=== PATIENT | female | born 1990 | race Caucasian/White ===

== ENCOUNTER 2016-05-20 14:35 | Emergency (ER) | payer OTHER ==
[~2016-05-20] VITALS: Wt 122.5 kg
[~2016-05-20 14:35] MED LIST: AUGMENTIN 875-875 MG PO; BIRTH CONTROL1 EAC1 PO; CYCLOBENZAPRINE10 MG PO; MACROBID100 M1 PO; Motrin,Rufen800 MG PO; NKHM; NORCO 325 MG-51 TAB PO; PEN-VK500 MG PO; PERIDEX 480 ML480 ML PO; PREDNISONE10 MG PO; PRENATAL1 TA1 PO; PRENATAL1 TA3 PO; TRIMOX500 MG PO; ZOFRAN ODT4 MG SL; [UNRECOGNIZED DRUG - OTHER] MM
[2016-05-20 16:36] LABS: BILIRUBIN NEGATIVE (NEGATIVE); BLOOD NEGATIVE (NEGATIVE); CLARITY SL CLOUDY (CLEAR); COLOR YELLOW (YELLOW); GLUCOSE NEGATIVE (NEGATIVE); KETONE NEGATIVE (NEGATIVE); LEUKO ESTERASE 1+ (NEGATIVE); NITRITE NEGATIVE (NEGATIVE); PH 6.5 (5.0-9.0); PROTEIN NEGATIVE (NEGATIVE); UROBILINOGEN 0.2 E.U./dl (0.2-1.0)
[2016-05-20 16:43] LABS: RBC 0-2 rbc/hpf (0-2)
[2016-05-20 16:44] LABS: BACTERIA 2+; URINE REFLEX COMMENT YES (NO)
[2016-05-20] MEDS ORDERED: MACROBID100 M1 PO (17:02)
== END 2016-05-20 17:07 | disposition left against medical advice (07) ==
LOC: ED 14:35
PROVIDERS: Registered Nurse
DX: O23.42 Unspecified infection of urinary tract in pregnancy, second trimester (principal); Z3A.20 20 weeks gestation of pregnancy; Z79.899 Other long term (current) drug therapy

== ENCOUNTER 2017-05-08 09:08 | Emergency (ER) | payer OTHER ==
[~2017-05-08] VITALS: Ht 170.1 cm; Wt 117.9 kg
[2017-05-08 09:45] LABS: BASO # 0.1 10*3/uL (0.0-0.1); BASO % 0.6 % (0.0-1.0); EOS # 0.6 10*3/uL (0.0-0.4); EOS % 7.1 % (1.0-4.0); HEMOGLOBIN 11.2 g/dl (12.0-16.0); LYMPH # 1.9 10*3/uL (1.3-4.4); LYMPH % 22.2 % (27.0-41.0); MEAN CELL VOLUME 75.8 fl (81.0-99.0); MEAN CORPUSCULAR HGB 23.6 pg (27.0-31.0); MEAN CORPUSCULAR HGB CONC 31.1 g/dl (33.0-37.0); MEAN PLATELET VOLUME 9.5 fl (9.6-12.3); MONO # 0.6 10*3/uL (0.1-1.0); MONO % 6.5 % (3.0-9.0); NEUT # 5.5 10*3/uL (2.3-7.9); NEUT % 63.1 % (47.0-73.0); PLATELET COUNT AUTOMATED 298 10*3/uL (130-400); RED BLOOD COUNT 4.75 10*6/uL (4.10-5.10); RED CELL DISTRI WIDTH 14.8 % (0-14.5); WHITE BLOOD COUNT 8.7 10*3/uL (4.8-10.8)
[2017-05-08 09:52] LABS: INTERNATIONAL NORM RATIO 0.9 (2.0-3.5)
[2017-05-08 10:00] LABS: ALBUMIN 3.5 gm/dl (3.1-4.5); ALKALINE PHOSPHATASE 114 U/L (45-117); BUN 15 mg/dl (7-24); CHLORIDE 108 mmol/L (98-107); CREATININE 1.03 mg/dL (0.55-1.02); POTASSIUM 3.7 mmol/L (3.5-5.1); SGOT/AST 20 IU/L (3-35); SGPT/ALT 35 U/L (12-78); SODIUM 141 mmol/L (136-145); TOTAL PROTEIN 7.7 gm/dL (6.4-8.2)
[2017-05-08] MEDS ORDERED: DELTASONE20 M1 PO (10:06)
[2017-05-08] MEDS ORDERED: ZITHROMAX250 MG PO (10:06)
[2017-05-08] MEDS ORDERED: VISTARIL25 MG PO (10:06)
[2017-05-08 10:07] LABS: TROPONIN I < 0.015 ng/ml (<0.045)
== END 2017-05-08 10:54 | disposition home or self-care (01) ==
LOC: ED 09:08
PROVIDERS: Physician Assistant
DX: J06.9 Acute upper respiratory infection, unspecified (principal); F41.9 Anxiety disorder, unspecified

== ENCOUNTER 2017-06-14 10:07 | Emergency (ER) | payer OTHER ==
[~2017-06-14] VITALS: Ht 170.1 cm; Wt 117.9 kg
[~2017-06-14 10:07] MED LIST changes: +DELTASONE20 M1 PO; +VISTARIL25 MG PO; +ZITHROMAX250 MG PO
[2017-06-14] MEDS ORDERED: PREDNISONE50 MG PO (11:31)
== END 2017-06-14 12:03 | disposition home or self-care (01) ==
LOC: ED 10:07
DX: J45.901 Unspecified asthma with (acute) exacerbation (principal); F41.9 Anxiety disorder, unspecified

== ENCOUNTER 2017-06-19 18:22 | Emergency (ER) | payer OTHER ==
[~2017-06-19] VITALS: Ht 170.1 cm; Wt 122.5 kg
[~2017-06-19 18:22] MED LIST changes: +PREDNISONE50 MG PO
[2017-06-19 18:44] LABS: BASO # 0.1 10*3/uL (0.0-0.1); BASO % 0.6 % (0.0-1.0); EOS # 0.2 10*3/uL (0.0-0.4); EOS % 1.1 % (1.0-4.0); HEMATOCRIT 36.1 % (37.0-47.0); HEMOGLOBIN 11.2 g/dl (12.0-16.0); LYMPH # 4.7 10*3/uL (1.3-4.4); LYMPH % 32.1 % (27.0-41.0); MEAN CELL VOLUME 76.8 fl (81.0-99.0); MEAN CORPUSCULAR HGB 23.8 pg (27.0-31.0); MEAN PLATELET VOLUME 9.8 fl (9.6-12.3); MONO # 1.1 10*3/uL (0.1-1.0); MONO % 7.2 % (3.0-9.0); NEUT # 8.4 10*3/uL (2.3-7.9); NEUT % 57.9 % (47.0-73.0); PLATELET COUNT AUTOMATED 305 10*3/uL (130-400); RED CELL DISTRI WIDTH 15.4 % (0-14.5); WHITE BLOOD COUNT 14.5 10*3/uL (4.8-10.8)
[2017-06-19 18:54] LABS: ACT PARTIAL THROMBO TIME 21.3 SECONDS (20.8-31.5)
[2017-06-19 19:00] LABS: ALBUMIN 3.7 gm/dl (3.1-4.5); ALKALINE PHOSPHATASE 87 U/L (45-117); BUN 15 mg/dl (7-24); CHLORIDE 104 mmol/L (98-107); CREATININE 1.06 mg/dL (0.55-1.02); POTASSIUM 3.9 mmol/L (3.5-5.1); SGOT/AST 13 IU/L (3-35); SGPT/ALT 38 U/L (12-78); SODIUM 141 mmol/L (136-145); TOTAL PROTEIN 7.4 gm/dL (6.4-8.2)
[2017-06-19 19:04] LABS: TROPONIN I < 0.015 ng/ml (<0.045)
== END 2017-06-19 21:17 | disposition home or self-care (01) ==
LOC: ED 18:22
PROVIDERS: Emergency Medicine
DX: R07.9 Chest pain, unspecified (principal); F41.9 Anxiety disorder, unspecified; Z79.899 Other long term (current) drug therapy

== ENCOUNTER 2017-07-08 00:19 | Emergency (ER) | payer OTHER ==
[~2017-07-08] VITALS: Ht 172.7 cm; Wt 117.9 kg
[2017-07-08] MEDS ORDERED: FLONASE ALLERG9.9 ML NAS (00:52)
[2017-07-08 00:57] LABS: BASO % 0.4 % (0.0-1.0); EOS # 0.5 10*3/uL (0.0-0.4); EOS % 4.4 % (1.0-4.0); HEMATOCRIT 36.3 % (37.0-47.0); HEMOGLOBIN 11.3 g/dl (12.0-16.0); LYMPH # 2.6 10*3/uL (1.3-4.4); LYMPH % 24.4 % (27.0-41.0); MEAN CELL VOLUME 76.7 fl (81.0-99.0); MEAN CORPUSCULAR HGB 23.9 pg (27.0-31.0); MEAN CORPUSCULAR HGB CONC 31.1 g/dl (33.0-37.0); MEAN PLATELET VOLUME 9.5 fl (9.6-12.3); MONO # 0.7 10*3/uL (0.1-1.0); MONO % 6.3 % (3.0-9.0); NEUT # 6.8 10*3/uL (2.3-7.9); NEUT % 64.2 % (47.0-73.0); PLATELET COUNT AUTOMATED 313 10*3/uL (130-400); RED BLOOD COUNT 4.73 10*6/uL (4.10-5.10); RED CELL DISTRI WIDTH 15.2 % (0-14.5); WHITE BLOOD COUNT 10.6 10*3/uL (4.8-10.8)
[2017-07-08 01:13] LABS: ACT PARTIAL THROMBO TIME 22.8 SECONDS (20.8-31.5)
[2017-07-08 01:17] LABS: ALBUMIN 3.8 gm/dl (3.1-4.5); ALKALINE PHOSPHATASE 96 U/L (45-117); BUN 12 mg/dl (7-24); CHLORIDE 104 mmol/L (98-107); CREATININE 0.93 mg/dL (0.55-1.02); POTASSIUM 3.7 mmol/L (3.5-5.1); SGPT/ALT 30 U/L (12-78); SODIUM 137 mmol/L (136-145); TOTAL PROTEIN 7.6 gm/dL (6.4-8.2)
[2017-07-08 01:24] LABS: SGOT/AST 15 IU/L (3-35)
[2017-07-08 01:27] LABS: BETA-HCG, QUANT < 1.0 mIU/mL (1-3); TROPONIN I < 0.015 ng/ml (<0.045)
== END 2017-07-08 01:35 | disposition home or self-care (01) ==
LOC: ED 00:19
PROVIDERS: Student in an Organized Health Care Education/Training Program
DX: R07.89 Other chest pain (principal); J45.901 Unspecified asthma with (acute) exacerbation; F41.9 Anxiety disorder, unspecified; F17.200 Nicotine dependence, unspecified, uncomplicated; Z79.899 Other long term (current) drug therapy

== ENCOUNTER → 2017-07-10 | Outpatient (CLI) | payer OTHER ==
[~2017-07-10] MED LIST changes: +FLONASE ALLERG9.9 ML NAS
--- NOTE | ~2017-07-10 | HM ---
[place], [place] HOLTER MONITOR REPORT [id number] UNIT #: [id number] ROOM: DOCTOR: NADINE ROBBINS MD BIRTHDATE: [birth year] DOS: 07/11/2017 A 24-HOUR HOLTER MONITOR REPORT REFERRING PHYSICIAN: Dr. Lloyd. INDICATION: Palpitations. The patient underwent standard protocol 24-hour Holter monitoring. The patient's baseline rhythm was normal sinus with a heart rate of 81 beats minute, minimum heart rate was 41 beats minute, maximum heart rate of 146 beats per minute. 1. Supraventricular activity: The patient was noted to have 194 isolated PACs. 2. No significant ventricular ectopy. 3. No significant blocks, pauses or bradycardia. 4. Diary was reviewed, which had multiple entries including chest tightness, chest hurting, lightheaded, dizzy. These correlated with normal sinus rhythm without ectopy. SUMMARY OF FINDINGS: Unremarkable 24-hour Holter monitor with no correlation of symptoms with arrhythmia. NADINE ROBBINS MD CM:HOLTER:HOLTER MONITOR REPORT [id number] NADINE ROBBINS MD
== END | disposition home or self-care (01) ==
LOC: CARD 10:00
DX: R00.2 Palpitations (principal)

== ENCOUNTER → 2017-10-08 | Outpatient (CLI) | payer OTHER ==
[2017-10-08 10:52] LABS: HEMATOCRIT 37.3 % (37.0-47.0); HEMOGLOBIN 11.4 g/dl (12.0-16.0); MEAN CELL VOLUME 81.1 fl (81.0-99.0); MEAN CORPUSCULAR HGB 24.8 pg (27.0-31.0); MEAN CORPUSCULAR HGB CONC 30.6 g/dl (33.0-37.0); MEAN PLATELET VOLUME 10.4 fl (9.6-12.3); RED BLOOD COUNT 4.6 10*6/uL (4.10-5.10); WHITE BLOOD COUNT 8.8 10*3/uL (4.8-10.8)
[2017-10-08 11:01] LABS: ALBUMIN 3.7 gm/dl (3.1-4.5); ALKALINE PHOSPHATASE 86 U/L (45-117); BUN 15 mg/dl (7-24); CHLORIDE 105 mmol/L (98-107); CREATININE 0.75 mg/dL (0.55-1.02); FREE T4 1.06 ng/dl (0.76-1.46); POTASSIUM 3.8 mmol/L (3.5-5.1); SGOT/AST 15 IU/L (3-35); SGPT/ALT 21 U/L (12-78); SODIUM 140 mmol/L (136-145); TOTAL PROTEIN 7.2 gm/dL (6.4-8.2)
== END | disposition home or self-care (01) ==
LOC: LAB 10:06
PROVIDERS: Family Medicine
DX: E55.9 Vitamin D deficiency, unspecified (principal); L65.9 Nonscarring hair loss, unspecified; R53.83 Other fatigue; R63.5 Abnormal weight gain

== ENCOUNTER 2017-10-14 08:29 | Emergency (ER) | payer OTHER ==
[~2017-10-14] VITALS: Wt 95.3 kg
[2017-10-14] MEDS ORDERED: METOPROLOL TART50 M1 PO (08:33)
[2017-10-14] MEDS ORDERED: METOPROLOL SUCC50 M1 PO (08:34)
[2017-10-14] MEDS ORDERED: PREDNISONE50 MG PO (09:04)
[2017-10-14] MEDS ORDERED: CYCLOBENZAPRINE10 MG PO (09:04)
== END 2017-10-14 09:08 | disposition home or self-care (01) ==
LOC: ED 08:29
DX: S39.012A Strain of muscle, fascia and tendon of lower back, initial encounter (principal); Z79.899 Other long term (current) drug therapy; X58.XXXA Exposure to other specified factors, initial encounter; Y93.89 Activity, other specified; Y92.89 Other specified places as the place of occurrence of the external cause; Y99.8 Other external cause status

== ENCOUNTER 2018-06-22 10:23 | Emergency (ER) | payer OTHER ==
[~2018-06-22 10:23] MED LIST changes: +METOPROLOL SUCC50 M1 PO; +METOPROLOL TART50 M1 PO
[2018-06-22] MEDS ORDERED: NAPROSYN500 MG PO (11:31)
[2018-06-22] MEDS ORDERED: MEDROL DOSEPAK4 MG PO (11:31)
[2018-06-22] MEDS ORDERED: ROBAXIN500 M1 PO (11:31)
== END 2018-06-22 11:50 | disposition home or self-care (01) ==
LOC: ED 10:23
DX: S39.012A Strain of muscle, fascia and tendon of lower back, initial encounter (principal); Z79.899 Other long term (current) drug therapy; X58.XXXA Exposure to other specified factors, initial encounter; Y93.89 Activity, other specified; Y92.89 Other specified places as the place of occurrence of the external cause; Y99.8 Other external cause status

== ENCOUNTER → 2019-04-26 | Outpatient (CLI) | payer OTHER ==
[~2019-04-26] MED LIST changes: +MEDROL DOSEPAK4 MG PO; +NAPROSYN500 MG PO; +ROBAXIN500 M1 PO
== END | disposition home or self-care (01) ==
LOC: RAD 04-12 08:00 → LAB 08:58 → RAD 09:00
DX: K21.9 Gastro-esophageal reflux disease without esophagitis (principal); E78.00 Pure hypercholesterolemia, unspecified; E55.9 Vitamin D deficiency, unspecified; E74.00 Glycogen storage disease, unspecified; F41.1 Generalized anxiety disorder; R63.5 Abnormal weight gain; L65.9 Nonscarring hair loss, unspecified

== ENCOUNTER → 2020-11-10 | Outpatient (CLI) | payer OTHER ==
[2020-11-10 10:38] LABS: HEMATOCRIT 40.6 % (37.0-47.0); MEAN CELL VOLUME 85.1 fl (81.0-99.0); MEAN CORPUSCULAR HGB 26.4 pg (27.0-31.0); MEAN PLATELET VOLUME 9.5 fl (9.6-12.3); RED BLOOD COUNT 4.77 10*6/uL (4.10-5.10); RED CELL DISTRI WIDTH 13.7 % (0-14.5); WHITE BLOOD COUNT 8.3 10*3/uL (4.8-10.8)
[2020-11-10 11:10] LABS: ALBUMIN 3.5 gm/dl (3.1-4.5); ALKALINE PHOSPHATASE 75 U/L (45-117); BUN 14 mg/dl (7-24); CHLORIDE 109 mmol/L (98-107); CHOLESTEROL 155 mg/dL (<200); CREATININE 0.78 mg/dL (0.55-1.02); LDL CHOLESTEROL 99 mg/dL (9-159); POTASSIUM 4.2 mmol/L (3.5-5.1); SGOT/AST 10 IU/L (3-35); SGPT/ALT 21 U/L (12-78); SODIUM 140 mmol/L (136-145); TOTAL PROTEIN 7.4 gm/dL (6.4-8.2); TRIGLYCERIDES 109 mg/dl (<150)
== END | disposition home or self-care (01) ==
LOC: LAB 10:16
PROVIDERS: ATTEND Family Medicine
DX: Z13.220 Encounter for screening for lipoid disorders (principal); K21.9 Gastro-esophageal reflux disease without esophagitis; E74.00 Glycogen storage disease, unspecified; L65.9 Nonscarring hair loss, unspecified; F41.1 Generalized anxiety disorder

== ENCOUNTER → 2021-08-17 | Outpatient (CLI) | payer OTHER | END | disposition home or self-care (01) | LOC: RAD 10:23 | PROVIDERS: ATTEND Family Medicine | DX: R22.41 Localized swelling, mass and lump, right lower limb (principal) ==

== ENCOUNTER 2021-09-07 17:49 | Emergency (ER) | payer OTHER ==
[~2021-09-07] VITALS: Ht 170.1 cm; Wt 172.4 kg
[2021-09-07] MEDS ORDERED: Motrin,Rufen800 MG PO (21:09)
== END 2021-09-07 21:09 | disposition home or self-care (01) ==
LOC: ED 17:49
DX: S93.402A Sprain of unspecified ligament of left ankle, initial encounter (principal); Z79.899 Other long term (current) drug therapy; X50.1XXA Overexertion from prolonged static or awkward postures, initial encounter; Y93.89 Activity, other specified; Y92.89 Other specified places as the place of occurrence of the external cause; Y99.8 Other external cause status

== ENCOUNTER 2021-11-02 17:16 | Emergency (ER) | payer OTHER ==
[~2021-11-02] VITALS: Ht 170.1 cm; Wt 127.0 kg
[2021-11-02] MEDS ORDERED: PREDNISONE50 MG PO (17:36)
== END 2021-11-02 18:03 | disposition home or self-care (01) ==
LOC: ED 17:16
DX: M54.42 Lumbago with sciatica, left side (principal)

== ENCOUNTER → 2023-10-10 | Outpatient (CLI) | payer OTHER ==
[2023-10-10 09:42] LABS: HEMATOCRIT 36.5 % (37.0-47.0); MEAN CELL VOLUME 76.2 fl (81.0-99.0); MEAN CORPUSCULAR HGB 23.8 pg (27.0-31.0); MEAN CORPUSCULAR HGB CONC 31.2 g/dl (33.0-37.0); MEAN PLATELET VOLUME 9.1 fl (9.6-12.3); RED BLOOD COUNT 4.79 10*6/uL (4.10-5.10); RED CELL DISTRI WIDTH 15.5 % (0-14.5); WHITE BLOOD COUNT 8.9 10*3/uL (4.8-10.8)
[2023-10-10 10:40] LABS: ALKALINE PHOSPHATASE 90 U/L (46-116); BUN 9 mg/dl (9-23); CHLORIDE 106 mmol/L (98-107); CHOLESTEROL 165 mg/dL (<200); FREE T4 1.13 ng/dl (0.89-1.76); LDL CHOLESTEROL 111 mg/dL (9-159); POTASSIUM 3.9 mmol/L (3.4-5.1); SGPT/ALT 12 U/L (5-49); TOTAL PROTEIN 7.3 gm/dL (6.0-8.0); TRIGLYCERIDES 90 mg/dl (<150); VITAMIN D, 25-HYDROXY 36.6 ng/mL (30-100)
== END | disposition home or self-care (01) ==
LOC: LAB 09:17
PROVIDERS: ATTEND Family Medicine
DX: E78.00 Pure hypercholesterolemia, unspecified (principal); J45.909 Unspecified asthma, uncomplicated; R53.83 Other fatigue; R63.5 Abnormal weight gain; E55.9 Vitamin D deficiency, unspecified; L68.0 Hirsutism

== ENCOUNTER → 2025-02-19 | Outpatient (CLI) | payer OTHER ==
[2025-02-19 11:00] LABS: MEAN CELL VOLUME 80.6 fl (81.0-99.0); MEAN CORPUSCULAR HGB 24.3 pg (27.0-31.0); MEAN PLATELET VOLUME 9.4 fl (9.6-12.3); NUCLEATED RED BLOOD CELL 0.0 % (0.0-0.0); NUCLEATED RED BLOOD CELL 0.0 10*3/uL (0.0-0.0); PLATELET COUNT AUTOMATED 302.0 10*3/uL (130-400); RED CELL DISTRI WIDTH 15.1 % (0-14.5)
[2025-02-19 11:25] LABS: BUN 10 mg/dl (9-23); FREE T4 1.21 ng/dl (0.89-1.76); LDL CHOLESTEROL 97 mg/dL (9-159); SGPT/ALT 16 U/L (5-49)
== END | disposition home or self-care (01) ==
LOC: LAB 10:05
PROVIDERS: ATTEND Family Medicine
DX: E78.00 Pure hypercholesterolemia, unspecified (principal); J45.909 Unspecified asthma, uncomplicated; E66.9 Obesity, unspecified